=== PATIENT | male | born 1990 | race Hispanic/Latino ===

== ENCOUNTER 2018-10-13 07:14 | Emergency (ER) | payer OTHER | END 2018-10-13 07:46 | disposition left against medical advice (07) | LOC: EEVIPCON 07:14 → EDH 07:14 | DX: Z02.83 Encounter for blood-alcohol and blood-drug test (principal); I10 Essential (primary) hypertension; E78.5 Hyperlipidemia, unspecified; Z72.0 Tobacco use ==